=== PATIENT | female | born 1950 | race Caucasian/White ===

== ENCOUNTER 2016-11-22 09:35 | Day surgery (SDC) | payer MEDICAID ==
[~2016-11-22 09:35] MED LIST: HYDROCODONE 5MG/5 MG PO; NORVASC DPS10 MG PO; SYNTHROID DP0.125 MG PO; TENORMIN DPS50 MG PO; ZESTRIL DPS40 MG PO
== END 2016-11-22 13:01 | disposition home or self-care (01) ==
DX: D12.0 Benign neoplasm of cecum (principal); K64.9 Unspecified hemorrhoids; K57.30 Diverticulosis of large intestine without perforation or abscess without bleeding; I10 Essential (primary) hypertension; E03.9 Hypothyroidism, unspecified; K59.00 Constipation, unspecified; Z90.710 Acquired absence of both cervix and uterus; Z90.49 Acquired absence of other specified parts of digestive tract; Z79.899 Other long term (current) drug therapy; Z86.010 Personal history of colon polyps

== ENCOUNTER 2016-11-25 05:22 | Emergency (ER) | payer MEDICAID ==
--- NOTE | 2016-11-29 15:36 | ER ---
ADMIT: 11/25/2016 RM/LOC: ER [facility] MR#: [id number] [address] [address] DARY SALTER [address] [place] [address] Emergency Room Report SEX: F AGE: 66 : 1950 DATE: 11/25/2016 ADDENDUM: This is a 66-year-old white female coming in with kind of a distention discomfort. She states her back hurts little bit. Her neck hurts a little bit, but she just had a colonoscopy on , still feels somewhat distended. Her exam is essentially negative. She does have degenerative arthritis in her neck. So, we did go ahead and put x-ray and that was negative. I did do kind of an upright flat plate, which showed gas and then also CT scan, which showed ileus with some retained air from the procedure. Her CBC, chemistry, lipase were all negative. I spoke with Dr. Crowell. We are going to let her go home. Sips of clear liquids and then follow up next week as needed. CONDITION ON DISCHARGE: Good. Elroy Weber MD/ natanael JOB #: [id number] CC: Vikash Bhandari MD, Attending Physician Temi Crowell MD, Family Physician
== END 2016-11-25 12:30 | disposition home or self-care (01) ==
LOC: ER 05:22
DX: K56.7 Ileus, unspecified (principal); E03.9 Hypothyroidism, unspecified; I10 Essential (primary) hypertension

== ENCOUNTER 2016-11-28 06:05 | Inpatient (IN) | payer MEDICAID ==
[~2016-11-28] VITALS: Ht 162.6 cm; Wt 80.1 kg
--- NOTE | ~2016-11-28 | ECH ---
Transthoracic Echocardiography Report (TTE) Demographics Patient Name DARY SALTER Date of Study 11/28/2016 Patient Number [id number] Visit Number [id number] Date of 1950 Room Number 405 Accession Number [id number] Gender Female Age 66 year(s) Referring Socrates Castillo Precision Lens Grinder Apprentice Rupa Ramríez [facility] Physician Physician Interpreting King Marino Sheldon MD Petroleum Supply Specialist Physician Supervising Ordering Physician Socrates Castillo MD/VERITO SEGAL Nurse Stress Residence Leasing Agent Conclusions Summary Technically fair exam. The estimated left ventricular ejection fraction is 65-70%. Severe concentric left ventricular hypertrophy. Diastolic assessment reveals Grade I diastolic dysfunction. The left atrium is severely dilated by LA volume index measurement. Mild mitral regurgitation by color Doppler. Procedure Type of Study TTE procedure:Echo Complete SF. Procedure Date Date: 11/28/2016 Start: 02:11 PM Technical Quality: Fair due to patient immobility. Indications:Hypotension and Hypertension. Additional Indications:sepsis Appropriate Use Criteria: 9 Height: 64 inches Weight: 169 pounds BSA: 1.82 m Rhythm: Sinus bradycardia HR: 59 bpm BP: 118/70 mmHg M-Mode/2D Measurements LV Diastolic Dimension: 2.8 cm LV Systolic Dimension: 1.7 cm LV Septum Diastolic: 1.9 cm LV PW Diastolic: 1.8 cm AO Root Dimension: 2.96 cm LA Dimension: 4.8 cm LA volume: 109 ml LA volume index: 60 ml/m RV Base: 3.4 cm LVOT: 2.17 cm RV Mid: 2.1 cm RV Length: 6.3 cm Doppler Measurements AV Peak Velocity: 1.45 m/s MV Peak E-Wave: 0.68 m/s AV Peak Gradient: 8.41 mmHg MV Peak A-Wave: 0.83 m/s LVOT Peak Velocity: 1.48 m/s MV E/A Ratio: 0.82 MV P1/2t: 60 msec MV Deceleration Time: 208 msec MV Area (PHT): 3.67 cm PV Peak Velocity: 0.86 m/s RA Area: 15 cm Findings Left Ventricle The left ventricle is normal in size . Severe concentric left ventricular hypertrophy. Diastolic assessment reveals Grade I diastolic dysfunction. Right Ventricle Normal right ventricle structure and function. Left Atrium The left atrium is severely dilated by LA volume index measurement. Right Atrium Normal right atrial size. Mitral Valve Normal mitral valve structure and function. Mild mitral regurgitation by color Doppler. Aortic Valve Normal aortic valve structure and function. Tricuspid Valve Normal tricuspid valve structure and function. Pulmonic Valve The pulmonic valve is not well visualized. Pericardial Effusion No evidence of pericardial effusion. Miscellaneous Visualized portions of the aortic root and ascending aorta appear normal in size. Pleural Effusion No evidence of pleural effusion. Signature
--- NOTE | 2016-11-30 05:52 | HP ---
ADMIT: 11/28/2016 RM/LOC: 405 [facility] MR#: [id number] [facility]#: [id number] 2620 [facility] [address] [place] [id number] DARY SALTER [address] [place] [id number] History and Physical SEX: F AGE: 66 : 1950 DATE OF SERVICE: CHIEF COMPLAINT: Not feeling well. HISTORY OF PRESENT ILLNESS: Ms. Salter is a 66-year-old female. She has a past medical history significant for history of head and neck cancer status post chemo radiation as well as history of tubulovillous adenomatous polyp as well as chronic renal insufficiency, hypertension, medical noncompliance, who had a colonoscopy I believe last week on November 22. She apparently did well after the colonoscopy and went home. She actually presented to the ER over the weekend. At that time, she came in because of a fall. Initially, she presented on 11/25 with just kind of some general abdominal discomfort, but really at that time, she was just given some IV hydration and sent home. Then, last night, she had a fall, came in. It sounds as if she was arguing with her daughter or something and decided she wanted to leave, so called the squad, I do not know. The patient gives a very poor history of this, but it sounds as if when she presented to the ER, they felt that maybe she was having some sepsis-like syndrome. Her temp initially was 103, although she has not had any repeat fever. It looks as if her chest x-ray was normal. Her CT scan of her abdomen was normal. She, otherwise, had a normal white count, and her urine looked normal. She denies any complaints at this time. She reports she has not been eating as well, but otherwise she has been doing okay. PAST MEDICAL HISTORY: Significant for: 1. Status post right hip arthroplasty 10 years ago. 2. Status post hypertension. 3. Gastritis. 4. History of hysterectomy. 5. Status post head and neck cancer, status post dissection and chemoradiation. 6. History of a G-tube placement. 7. History of a tubulovillous adenoma of the rectum which had been removed and recently apparently recurred. 8. Status post appendectomy. 9. History of ulcers. 10.History of cataracts. 11.Hypothyroidism. 12.History of chronic renal insufficiency. ALLERGIES: LISTED NO KNOWN MEDICAL ALLERGIES. MEDICATIONS: 1. Amlodipine 10 mg p.o. daily. 2. Lisinopril 40 mg p.o. daily. 3. Atenolol 50 mg p.o. daily. 4. Levothyroxine 137 mcg p.o. daily. SOCIAL HISTORY: She is on disability. Lives with her daughter. She is not a smoker and does not use any significant alcohol. ADMIT: 11/28/2016 RM/LOC: 405 [facility] MR#: [id number] [address] [address] [place] [address] History and Physical SEX: F AGE: 66 : 1950 FAMILY HISTORY: Relatively noncontributory. REVIEW OF SYSTEMS: Obtained, was otherwise really essentially negative. PHYSICAL EXAMINATION: GENERAL: She is alert and oriented. She seems a little slow. HEENT: Pupils are equal, round, and reactive. Oropharynx, she has no teeth. NECK: Supple. HEART: Normal rate with a regular rhythm. LUNGS: Have diminished breath sounds. ABDOMEN: Soft. Bowel sounds are present, nontender, nondistended. EXTREMITIES: Have no evidence of edema. She has no sores present, although she does kind of have some sores just from where she picks at her skin. LABORATORY DATA: Her laboratory values are reviewed. Of note, her BUN and creatinine are quite elevated. Her baseline creatinine is 1.5 to 2, and it is 3.1 at this time. ASSESSMENT AND PLAN: 1. Profound dehydration. We will go ahead and give her some IV hydration. 2. Hypotension. We will hold her antihypertensives. 3. Fever. She is afebrile at this time, really has no source of infection. We will hold off on giving any antibiotics and just monitor. 4. Chronic kidney disease. 5. Anemia, does appear to be iron deficiency. We will go ahead and give her some Injectafer. 6. Recent diagnosis of the tubulovillous adenoma. At this time, we will discuss the case with Dr. Mackenzie in case he wants to do some kind of surgical intervention and whether or not he wants to do while she is here. 7. Hypertension control. Hold her antihypertensives. 8. Hypothyroidism. Her TSH was checked and does look a little over- replaced. We will lower her dose. I spent 35 minutes in the admission and evaluation of this patient. Temi Crowell MD/ natanael JOB #: [id number] CC: Temi Crowell, Attending Physician Temi Crowell, Family Physician
--- NOTE | 2016-12-02 23:08 | ER ---
ADMIT: 11/28/2016 RM/LOC: 405 [facility] MR#: [id number] 2620 [facility] [address] [place], [place] [address] DARY SALTER [address] [place] [address] Emergency Room Report SEX: F AGE: 66 : 1950 DATE: 11/28/2016 CHIEF COMPLAINT: Fall. HISTORY OF PRESENT ILLNESS: The patient is a 66-year-old female, currently lives with her daughter in [place], disabled due to chronic pain. She was increasingly weak, febrile with diarrhea last night, got up to use the restroom and fell. Paramedics transported, found to be febrile, hypotensive with diffuse abdominal pain, was evaluated here on 11/25/2016, after undergoing uneventful colonoscopy several days prior. CT and plain films had showed ileus, was discharged home. She states since the visit on 11/25/2016, she was just increasingly weak and now with diarrhea and fever. PAST MEDICAL HISTORY: ILLNESSES: Peptic ulcer disease; gastritis; hypertension; hypothyroidism, status post thyroidectomy for thyroid cancer; degenerative joint disease; tubulovillous adenoma of the rectum; chronic kidney disease. OPERATIONS: Appendectomy, hysterectomy, right total hip arthroplasty with multiple dislocations and recent redo in [place], status post G-tube placement, partial thyroidectomy, transverse colon open due to size. ALLERGIES: NONE. MEDICATIONS: Please see nurse's MAR. SOCIAL HISTORY: , retired, lives with daughter. Nonsmoker, nondrinker. No illicit drugs. FAMILY HISTORY: Negative per chart review. REVIEW OF SYSTEMS: A 12-point review of systems negative for all other systems, illnesses, or operations except as outlined above. PHYSICAL EXAMINATION: VITAL SIGNS: Temp 103, pulse 78, respirations 16, BP 93/58, SaO2 of 95% on room air. GENERAL: Pale, lethargic, in moderate distress. HEENT: Mucous membranes are dry. No evidence of epistaxis, rhinorrhea, or otorrhea. NECK: Supple without meningismus. CHEST: Clear. Breath sounds equal. HEART: Regular rate and rhythm without murmur, gallop, or edema. ABDOMEN: Soft, diffusely tender. Bowel sounds hypoactive. BACK: No CVA tenderness. EXTREMITIES: No evidence of Homans sign, synovitis, or dermatitis. ADMIT: 11/28/2016 RM/LOC: 405 [facility] MR#: [id number] [address] [address] [facility] [place] [address] Emergency Room Report SEX: F AGE: 66 : 1950 NEURO: EOMI. PERRLA. No evidence of drift, dysarthria, or ataxia. Gait not assessed. MENTAL STATUS: Alert, disoriented without delusions. MEDICAL DECISION MAKING: The patient's screen is positive for sepsis, hypotensive, was given 30 mL/kg bolus, Tylenol 1 g p.o. Chest x-ray, unremarkable. EKG shows sinus rhythm with left atrial enlargement, LVH unchanged from October 26. Remainder of lab, CT of abdomen and pelvis and head pending. Due to the patient's sepsis syndrome, will be admitted. Case signed over Dr. Calabrese at 0700 hours. Mike Murillo MD/ natanael JOB #: [id number] CC: Temi Crowell MD, Attending Physician Temi Crowell MD, Family Physician Temi Crowell MD
--- NOTE | 2016-12-06 11:46 | CO ---
ADMIT: 11/29/2016 RM/LOC: 405 [facility] MR#: [id number] [address]20 [facility] [address] [place], [place] [address] DARY SALTER [address] [place] [address] Consultation SEX: F AGE: 66 : 1950 DATE OF CONSULTATION: 12/01/2016 ATTENDING PHYSICIAN: Temi Crowell CONSULTING PHYSICIAN: Kaley Villasenor MD REASON FOR CONSULT: Methicillin-sensitive staphylococcus aureus bacteremia. Thank you, Dr. Crowell, for the consult and involving me in this patient's care. HISTORY OF PRESENT ILLNESS: Ms. Salter is a 66-year-old woman with history of head and neck cancer, status post chemoradiation, and history of tubulovillous adenomatous polyp, presented to the ER with complaint of not feeling well. She had a colonoscopy on 11/22 for recurrent large villous polyp in the cecum and was discharged home. She presented again to the ER on 11/25/16 with abdominal discomfort and was found to have some ileus. She again presented on 11/28 after she had a fall and was febrile and extremely weak. She was noted to have a temperature of 103 in the ER. She screened positive for sepsis and was hypotensive and hence admitted for further workup. Her admission blood cultures grew methicillin-sensitive Staphylococcus aureus and repeat blood cultures on the again grew MSSA. She has multiple skin lesions likely from picking on her skin, which are currently red. At present, she feels fine and denies any complaints. She is a very poor historian. She lives at home with her daughter in [place]. PAST MEDICAL HISTORY: 1. Status post right hip arthroplasty 10 years ago and per the patient revision was done in October. 2. Gastritis. History of hysterectomy. 3. Head and neck cancer, status post surgery and chemoradiation. 4. History of G-tube placement. 5. Tubulovillous adenoma. 6. Appendectomy. 7. History of ulcers. 8. Status post cataract surgery. 9. Hypothyroidism. 10.Chronic kidney disease. ALLERGIES: NO KNOWN DRUG ALLERGIES. CURRENT MEDICATIONS: Include: 1. Synthroid. 2. Lovenox. 3. Oxacillin 2 g every 4 hours. 4. Gentamicin. SOCIAL HISTORY: She lives with her daughter at [place]. Denies any smoking, alcohol, or recreational drug use. ADMIT: 11/29/2016 RM/LOC: 405 [facility] MR#: [id number] [address] [address] [place] [address] [place] [address] Consultation SEX: F AGE: 66 : 1950 FAMILY HISTORY: Denies any family history of diabetes, heart problems, or cancer. REVIEW OF SYSTEMS: A 10-point review of systems negative except as mentioned in HPI. PHYSICAL EXAMINATION: VITAL SIGNS: Current temperature is 98.9, T-max was 103 in the ER, heart rate 93, respirations 18, blood pressure 142/91, 99% on room air. GENERAL: No acute distress. HEENT: Head is normocephalic and atraumatic. Extraocular movements intact. Oral mucosa dry. LYMPH: No palpable anterior/posterior cervical or supraclavicular lymphadenopathy. CHEST: Decreased breath sounds at bases. CARDIOVASCULAR: S1 and S2 heard. Regular rate and rhythm. ABDOMEN: Soft, nontender, and nondistended. Active bowel sounds. EXTREMITIES: 1+ peripheral edema. SKIN: There are multiple superficial skin ulcers on her neck on the right side, back, and old healed lesions noted on her lower extremities. PSYCH: Normal affect. Memory mildly impaired. MUSCULOSKELETAL: Mild tenderness to palpation in the right hip. No erythema or swelling noted on the skin. DATA REVIEW: CBC today shows white count of 6.5, hemoglobin 8.5, and platelets 192. BMP shows improved creatinine of 1.3, and low potassium 3.5. CT of the chest without contrast showed interval development of small right pleural effusion and bibasilar interstitial markings. Blood cultures drawn on and is growing methicillin-sensitive staphylococcus aureus. ASSESSMENT AND PLAN: 1. Methicillin-sensitive staphylococcus aureus bacteremia, likely source is skin. I will continue her on oxacillin 2 g every 4 hours. Repeat blood cultures are pending. She had a transthoracic echocardiogram, which did not show any vegetations. I agree with doing a transesophageal echo, ADMIT: 11/29/2016 RM/LOC: 405 [facility] MR#: [id number] [facility] [address] [address] [place] [facility] L [address] [place] [address] Consultation SEX: F AGE: 66 : 1950 which is scheduled for today. Repeat blood cultures are pending. I do not see a need of adding gentamicin at this time and with her kidney function I would hold it now. She does not have any prosthetic heart valves or any pacemaker. 2. Right hip tenderness. I would do a bone scan to rule out any right hip osteomyelitis. We will also check ESR. 3. Status post recent colonoscopy. 4. Acute kidney injury, improving. 5. Hypokalemia. 6. Hypothyroidism. 7. Anemia. Thank you for the consult and I will continue to follow the patient. Kaley Villasenor MD/ natanael JOB #: [id number] CC: Temi Crowell, Attending Physician Temi Crowell, Family Physician
[2016-12-06] MEDS ORDERED: DUONEB DPS3 ML IH (12:03)
[2016-12-06] MEDS ORDERED: LOVENOX DP30 MG/0.3 SQ (12:04)
[2016-12-06] MEDS ORDERED: BACTROBAN OINT.22 GM TP (12:04)
[2016-12-06] MEDS ORDERED: PROSTAPHLIN DPS2 GM IV (12:05)
[2016-12-06] MEDS ORDERED: MAALOX DPS30 ML PO (12:06)
[2016-12-06] MEDS ORDERED: TYLENOL DPS325 MG PO (12:06)
[2016-12-06] MEDS ORDERED: COLACE-DPS100 MG PO (12:06)
[2016-12-06] MEDS ORDERED: POTASSIUM CHLO20 ME1 PO (12:07)
[2016-12-06] MEDS ORDERED: MUCINEX600 MG PO (12:07)
--- NOTE | 2016-12-09 21:34 | ER ---
ADMIT: 11/28/2016 RM/LOC: 405 [facility] MR#: [id number] 2620 [facility] [address] DARY SALTER [address] [place] [address] Emergency Room Report SEX: F AGE: 66 : 1950 DATE: 11/28/2016 ADDENDUM: Following up labs, sepsis workup including a head scan, abdomen scan both of which were negative. Chest x-ray is negative. Labs are significant for BUN of 67, creatinine 3.1, troponin 0.078, C-reactive protein 14, BMP 6565, lactic acid is 0.9. Urine was clean. INR 1.26. Procalcitonin 1.78. The patient is being admitted for hypotension, medically induced. Georges Calabrese MD/ modl JOB #: [id number] CC: Temi Crowell MD, Attending Physician Temi Crowell MD, Family Physician
--- NOTE | 2016-12-17 19:37 | DS ---
ADMIT: 11/29/2016 RM/LOC: 405 [facility] MR#: [id number] [address] [address] DARY SALTER [address] [place] [address] Discharge Summary SEX: F AGE: 66 : 1950 ADMISSION DATE: 11/29/2016 DISCHARGE DATE: 12/05/2016 DISCHARGE DIAGNOSES: 1. Fever. 2. Sepsis due to methicillin-sensitive Staph aureus. 3. Acute kidney injury. 4. Dehydration. 5. Non-pressure skin ulcerations, self-induced. 6. Hypertension. 7. Chronic kidney disease. 8. Hypokalemia. 9. Chronic pain. 10.Hypothyroidism. 11.Osteoarthritis. 12.Iron deficiency anemia. 13.History of head and neck cancer. 14.History of peptic ulcer disease. 15.History of artificial joint replacement. HOSPITAL COURSE: The patient was admitted initially after coming to the ER several times was just complained of weakness and abdominal pain. She did have blood cultures, which were done which did grow out 2/2, actually turned out to be 4/4 gram-positive cocci turned out to be MSSA. She was started on IV antibiotics. There was really no source found. She had a CT of her chest, CT of her abdomen and pelvis, which showed no obvious source. She had picked some areas on her skin. She also attempted CHRISTINE, however, due to her previous esophageal surgery radiation, this was not be able to be accomplished. Therefore, had an Infectious Disease consult. They felt it was safest just to have the patient continue out a full course of IV antibiotics. Otherwise, her anemia was treated. She was seen by PT/OT. She did have a bone scan, which came back negative for any evidence of infection of the joint. The plan was for patient to be discharged to [facility]. DISCHARGE INSTRUCTIONS: ADMIT: 11/29/2016 RM/LOC: 405 [facility] MR#: [id number] 2620 [facility] [address] [place] [address] DARY SALTER [address] [place] [address] Discharge Summary SEX: F AGE: 66 : 1950 1. Norvasc 10 mg p.o. daily. 2. Synthroid 125 mcg p.o. at bedtime. 3. Tenormin 75 mg p.o. daily. 4. Zestril 40 mg p.o. daily. 5. DuoNeb q.i.d. 6. Lovenox daily. 7. Bactroban ointment. 8. Oxacillin 2 g IV every 4 hours I believe x4 weeks until 12/29/2016. She was to have a regular diet. CBC and BMP in one week. CMP weekly. Sedimentation rate in 2 weeks. Chest x-ray in one week. Follow up with Dr. Villasenor. Followup with Dr. Temi Crowell. PT, OT, speech therapy to follow along, and she had a regular diet. Temi Crowell MD/ lenchol JOB #: [id number] CC: Temi Crowell MD, Attending Physician Temi Crowell MD, Family Physician
== END 2016-12-05 13:35 | DRG 872 ==
LOC: ER 06:05 → 4PCU 08:05
PROVIDERS: ADMIT Internal Medicine
DX: A41.1 Sepsis due to other specified staphylococcus (principal); N17.9 Acute kidney failure, unspecified; E86.0 Dehydration; L98.499 Non-pressure chronic ulcer of skin of other sites with unspecified severity; I12.9 Hypertensive chronic kidney disease with stage 1 through stage 4 chronic kidney disease, or unspecified chronic kidney disease; N18.9 Chronic kidney disease, unspecified; L98.429 Non-pressure chronic ulcer of back with unspecified severity; E87.6 Hypokalemia; G89.29 Other chronic pain; E89.0 Postprocedural hypothyroidism; M19.90 Unspecified osteoarthritis, unspecified site; D50.9 Iron deficiency anemia, unspecified; Z85.850 Personal history of malignant neoplasm of thyroid; Z87.11 Personal history of peptic ulcer disease; Z96.641 Presence of right artificial hip joint; Z91.19 Patient's noncompliance with other medical treatment and regimen

== ENCOUNTER 2016-12-05 08:43 | Inpatient (IN) | payer MEDICAID ==
[~2016-12-05] VITALS: Ht 162.6 cm; Wt 83.0 kg
--- NOTE | 2016-12-06 09:55 | NUR ---
PATIENT NOTE DARY HAS BEEN ADMITTED TO [facility] FROM [facility] WHERE SHE IS BEING TREATED FOR SEPSIS. SHE WILL RECEIVE 5 MORE WEEKS OF I.V.A B. THERAPY WITH A STOP DATE OF 12/29. PHYSICAL AND OCCUPATIONAL THERAPY WILL ALSO BE INVOLVED AND WORK ON STRENGTHENING AND ENDURANCE. DARY LIVES IN [place] WITH HER DTR. AND THE GOAL/PLAN IS FOR HER TO RETURN. SHE IS ALERT AND APPROPRIATE WITH ANSWERS IF SHE HEARS YOU, SHE IS HARD OF HEARING. HER MEDICAID TOTAL CARE HAS APPROVED HER STAY WITH A REVIEW ON DAY 7. SOCIAL WORK WILL FOLLOW AND ASSIST WITH D/C PLANNING AND WITH CONCERNS OR NEEDS THAT MAY ARISE.
[2016-12-06] MEDS ORDERED: DUONEB DPS3 ML IH (12:03)
[2016-12-06] MEDS ORDERED: LOVENOX DP30 MG/0.3 SQ (12:04)
[2016-12-06] MEDS ORDERED: BACTROBAN OINT.22 GM TP (12:04)
[2016-12-06] MEDS ORDERED: PROSTAPHLIN DPS2 GM IV (12:05)
[2016-12-06] MEDS ORDERED: TYLENOL DPS325 MG PO (12:06)
[2016-12-06] MEDS ORDERED: MAALOX DPS30 ML PO (12:06)
[2016-12-06] MEDS ORDERED: COLACE-DPS100 MG PO (12:06)
[2016-12-06] MEDS ORDERED: POTASSIUM CHLO20 ME1 PO (12:07)
[2016-12-06] MEDS ORDERED: MUCINEX600 MG PO (12:07)
--- NOTE | 2016-12-06 16:35 | NUR ---
INTERVIEW FOR MDS 3.0-PT IS SITTING IN HER RECLINER, SHE IS ALERT, APPROPRIATE. SHE IS HARD OF HEARING WITH HEARING AIDS IN PLACE. PT. KNOWS THE YEAR, MONTH AND DAY OF THE WEEK. PT. HAS DIFFICULTY REPEATING THE THREE WORDS AND DIFF. RECALLING, NEEDS CUES FOR ALL THREE WORDS. DENIES DEPRESSION BUT STATES SHE IS CHECKING OFF THE DAYS TO BE ABLE TO GO HOME. NOT SURE SHE COMPREHENDS QUESTIONS AT TIMES, WILL ANSWER BUT NOT ON THE SAME SUBJECT. HAS NO TEETH AND STATES HER APPETITE IS GOOD. SLEEPS PRETTY GOOD SHE STATES. DOES NOT CARE ABOUT WHAT SHE WEARS, LIKES TO CHOOSE WHEN AND HOW SHE BATHES. TRIES AND SNACKS BETWEEN MEALS SOMETIMES. STATES SHE IS HAVING PAIN ON HER LT. SIDE, UNABLE TO DESCRIBE, STATES SHE HAS GAS SOMETIMES. GOAL IS TO GO HOME WITH DTR IN [facility]. ASKING TODAY IF OUR VAN CAN GET HER THERE BECAUSE ITS TOO HARD TO STEP UP THE STEPS OF A THE PUBLIC TRANSPORTATION. ELEVATED LEGS ON PILLOW, NOTED MOD AMT EDEMA IN LOWER LEGS BILATERALLY. THANKED THE PT. FOR THE NICE VISIT AND WISHED HER A GOOD REST OF THE DAY.
--- NOTE | 2016-12-12 17:21 | NUR ---
12/12/16 1715 PT IS FRANTIC, AFRAID THAT SOMETHING HAS HAPPENED TO HER RACHEL. SHE HAS THROWN THE PHONE SEVERAL TIMES, HIT THE CALL LITE ON THE TABLE, AND VERY VOCAL THAT "SOMETHING HAS HAPPENED"; SHE IS ON THE CALL LIGHT EVERY FEW MINUTES WITH SAME CONCERN; SHE GIVES ME A NAME TO TRY AND CALL BUT TELLS ME THAT HE IS HARD OF HEARING AND WILL NOT HEAR THE PHONE. I [facility] TO ASK FOR SUGGESTIONS, AND IT GOES TO 911. AFTER EXPLAINING THE SITUATION TO THE DISPATCHER, SHE TELLS ME THAT THEY WILL SEND SOMEONE TO THE PTS ADDRESS, DO A WELFARE CHECK, AND IF THE RACHEL ABHIJIT FAITH IS OK, THEY WILL HAVE HER CALL HER MOTHER. IT THERE IS A PROBLE, THE INSURANCE ACTUARY WILL CALL SKILLED CARE. CLERK MIGUEL
--- NOTE | 2016-12-12 17:41 | NUR ---
12/12/161744 ART PREPARATOR ELOY CALLS TO REPORT THAT THE RACHEL LACEY PENTECOSTAL IS FINE, BUT THAT HER PHONE IS COMPLETELY AND SHE DOESNT KNOW HOW TO CHARGE IT. AT THIS TIME THE COUSIN DION TILLMAN CALLS AND SAYS THAT SHE HAS ABHIJIT WITH HER AND CAN SHE TALK TO DARY, I HAVE PUT HER INTO THE ROOM SO THAT THE PT AND DAUGHTER CAN TALK. I PUT THE CALL INTO THE ROOM THE PT GETS ON THE PHONE AND BEGINS SCREAMING AND CRYING, SAYING THAT SHE IS NEEDING TO GO HOME, ETC. CLERK MIGUEL
--- NOTE | 2016-12-15 05:36 | NUR ---
PT C/O BURING SENSATION WITH 2200 ANTIBIOTIC IV STATES "IT FEELS LIKE A BABY WITH A GAULDED BUTT" SMALL AMOUNT OF BLOOD RETURN OBTAINED. NO REDNESS TO IV SITE, LEFT ARM MEASURES SAME RT; 0530 IV RATE WAS SLOWED AND PT C/O NO BURNING BUT RN NOTED INCREASE EDEMA TO RT UPPER ARM. NO BLOOD RETURN WITH CHECK; RN STOPPED IV FLUIDS AT THIS TIME; PT WAS SEEN AT [facility] 0405 TO CHECK PLACEMENT AND NO CHANGES WERE MADE AT THAT TIME.
--- NOTE | 2016-12-15 20:57 | NUR ---
PICC LINE LEFT UPPER ARM, GAUZE IN PLACE UNABLE TO VISULIZE INSERTION SITE DRESSING CHANGE DUE AFTER 24 HOURS. HAS GOOD BLOOD RETURN.
--- NOTE | 2016-12-29 08:30 | NUR ---
MANUAL BLOOD PRESSURE OF 110/48 WITH MAP OF 68. LOPRESSOR GIVEN PER ORDER. OFFERS NO COMPLAINTS.
== END 2016-12-30 05:10 | disposition short-term general hospital (02) | DRG 872 ==
LOC: SNU 08:43
PROVIDERS: ADMIT Internal Medicine
PROC: F08Z4ZZ Home Management Treatment (ICD-10-PCS; principal; 2016-12-05)
PROC: F07Z9ZZ Gait Training/Functional Ambulation Treatment (ICD-10-PCS; principal; 2016-12-05)
DX: A41.1 Sepsis due to other specified staphylococcus (principal); R04.2 Hemoptysis; I12.9 Hypertensive chronic kidney disease with stage 1 through stage 4 chronic kidney disease, or unspecified chronic kidney disease; L98.429 Non-pressure chronic ulcer of back with unspecified severity; L98.499 Non-pressure chronic ulcer of skin of other sites with unspecified severity; G89.29 Other chronic pain; E89.0 Postprocedural hypothyroidism; M19.90 Unspecified osteoarthritis, unspecified site; D50.9 Iron deficiency anemia, unspecified; N18.9 Chronic kidney disease, unspecified; Z85.850 Personal history of malignant neoplasm of thyroid; Z87.11 Personal history of peptic ulcer disease; Z96.641 Presence of right artificial hip joint; Z91.19 Patient's noncompliance with other medical treatment and regimen

== ENCOUNTER 2016-12-30 02:42 | Observation (INO) | payer MEDICAID ==
[~2016-12-30] VITALS: Ht 152.4 cm; Wt 79.3 kg
[~2016-12-30 02:42] MED LIST changes: +BACTROBAN OINT.22 GM TP; +COLACE-DPS100 MG PO; +DUONEB DPS3 ML IH; +LOVENOX DP30 MG/0.3 SQ; +MAALOX DPS30 ML PO; +MUCINEX600 MG PO; +POTASSIUM CHLO20 ME1 PO; +PROSTAPHLIN DPS2 GM IV; +TYLENOL DPS325 MG PO
--- NOTE | 2017-01-01 00:30 | HP ---
ADMIT: 12/30/2016 RM/LOC: 425 [facility] MR#: [id number] 2620 [facility] [address] [place] [phone] JAZMIN SALTER [address] [place] [id number] History and Physical SEX: F AGE: 66 : 1950 DATE OF SERVICE: 12/30/2016 INTERVAL HISTORY: Since Jazmin was hospitalized on November 28, she was found to have methicillin-sensitive Staph aureus sepsis. She is currently receiving oxacillin intravenously. 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 I was called on the evening of admission that she had an episode of hemoptysis. She is currently at skilled care. She was brought over for evaluation. Was complaining of some abdominal discomfort and nausea. Had an emesis of what they described in the emergency room as coffee-ground. Due to the concern of this and also coughing up blood, they were concerned about sending her back, so they wanted her observed. I admitted her for observation. Apparently, all of these issues are chronic in nature. There is no intent to do an EGD because of her history of head and neck cancer making a scope difficult to do. Hemodynamically, she is stable and her hemoglobin is also stable, although it is low. For this reason, she is observed to make sure there is nothing else that will develop and likely returning to skilled. PAST MEDICAL HISTORY: See previous dictation. Recent methicillin-sensitive Staph aureus sepsis for which she is receiving oxacillin IV every 4 hours. ALLERGIES: UNCHANGED. SOCIAL HISTORY: Unchanged. FAMILY HISTORY: Unchanged. REVIEW OF SYSTEMS: She is having a little bit of discomfort in her abdomen. Some decreased hearing also. MEDICATIONS: On admission: 1. Potassium 20 mEq daily. 2. Norvasc 10 mg daily. 3. Synthroid 0.125 daily. 4. Tenormin 25 daily. 5. Zestril 40 daily. 6. Lovenox 30 daily. 7. Bactroban ointment to the sore daily. 8. Oxacillin 2 g IV every 4. 9. Colace 100 mg b.i.d. p.r.n. 10.Maalox p.r.n. 11.Milk of mag daily p.r.n. 12.MiraLAX daily p.r.n. 13.Tums p.r.n. 14.Tylenol 650 p.o. or suppository p.r.n. 15.DuoNeb q.4 p.r.n. 16.Dulcolax suppository p.r.n. 17.Nystatin powder t.i.d. p.r.n. 18.Zofran q.4 p.r.n. IV. ADMIT: 12/30/2016 RM/LOC: 425 [facility] MR#: [id number] [address] [address] [place] [address] History and Physical SEX: F AGE: 66 : 1950 PHYSICAL EXAMINATION: VITAL SIGNS: Per nursing. GENERAL: This is a pale well-developed, well-nourished female currently sitting in a chair right before lunch. NECK: With obvious previous surgery for her head and neck cancer. LUNGS: Diminished but clear. CARDIOVASCULAR: Regular with a 1/6 murmur. ABDOMEN: Soft. GENITOURINARY AND RECTAL: Deferred. EXTREMITIES: Without edema. IMPRESSION: 1. Hemoptysis. 2. Emesis with ? blood. 3. Hypertension. 4. Chronic kidney disease. 5. Anemia. 6. History of head and neck cancer. 7. History of peptic ulcer disease. 8. History of sepsis secondary to methicillin-sensitive Staph aureus. 9. History of tubulovillous adenoma with planned surgery of 01/02/2017. 10.Hypothyroid. DISCUSSION: This is stable. Surgeons are not planning on doing an EGD. That was the main reason I kept her. There really is no reason for her to stay in the hospital waiting for her surgery. We will dismiss back to skilled care, which she was not pleased about. PLAN: 1. Dismissed back to skilled care. 2. Continue current medications except stop Lovenox and start Pepcid 20 b.i.d. Nathaly Jensen MD/ natanael JOB #: [id number] CC: Temi Crowell MD, Attending Physician Temi Crowell MD, Family Physician . [facility]
--- NOTE | 2017-01-02 00:35 | ER ---
ADMIT: 12/30/2016 RM/LOC: 425 [facility] MR#: [id number] 2620 [facility] [address] [place] [phone] DARY SALTER [address] [place] [address] Emergency Room Report SEX: F AGE: 66 : 1950 DATE: 12/30/2016 HISTORY OF PRESENT ILLNESS: The patient is a 66-year-old female with a past medical history of pharyngeal cancer, status post radiation and chemotherapy; villous adenomas of the colon, waiting for colon resection on Sunday; hypertension; chronic kidney disease; gastritis; MSSA bacteremia, who is still getting oxacillin for it, came to the ER with chief complaint of coughing up blood, from custodial facility. Additionally, today patient coughed blood a few times. PHYSICAL EXAMINATION: GENERAL: In the ER, the patient was in no obvious distress, lying in the bed. VITAL SIGNS: Blood pressure was 158/85 with a heart rate of 86 and respiratory rate of 18, O2 saturation was 97% on 2-4 L nasal cannula. The patient usually is on room air and per previous chart was in the low-to-mid 90s on room air. HEAD AND NECK: Conjunctiva is not pale. In the mouth, there are two 3-5 mm clots at the size of the tongue. I was looking for any obvious source of bleeding in the oropharynx, but I was not able to see any source. I did not see any active bleeding or any blood in the back of the throat. The patient in the ER coughed twice and there were just sputum mixed with the blood, which was bright. Trachea is midline. No bruit on the neck. CHEST: Clear bilaterally. No murmurs or gallops. ABDOMEN: Distended, but is soft and nontender. No rebound and no CVA tenderness. Bowel sounds are normal. EXTREMITIES: Upper and lower extremity motor and sensory are grossly normal, and the rest of the physical examination is noncontributory and negative. LABORATORY AND X-RAY DATA: Chest x-ray did not show any acute changes comparing with the previous chest x-ray. EKG was negative for any ischemic changes. Hemoglobin was 8.1 with white cell 5.5 and MCV of 96.2, and platelet of 242. The patient's hemoglobin level has been in that range for sometime ADMIT: 12/30/2016 RM/LOC: 425 [facility] MR#: [id number] [address] [address] [facility] [address] Emergency Room Report SEX: F AGE: 66 : 1950 and creatinine was 1.2. Alkaline phosphatase was elevated to 333. While the patient was in the ER because of the chronic right upper quadrant abdominal pain that she had all the time per patient for the last month, she received 2 mg of morphine for which, she became a little nauseous and she spitted up some phlegm, which was more like coffee-ground. The patient received Protonix IV in the ER and Zofran in the ER. ASSESSMENT AND PLAN: Considering the possibility of pharyngeal cancer/scar bleeding versus gastritis versus hemoptysis, the patient was admitted for further followups and treatments, ENT versus bronchoscopy per their discretion. Vikash Bhandari MD/ natanael JOB #: [id number] CC: Temi Crowell MD, Attending Physician Temi Crowell MD, Family Physician
--- NOTE | 2017-01-10 16:25 | CO ---
ADMIT: 12/30/2016 RM/LOC: 425 [facility] MR#: [id number] [address] [address] DARY SALTER [address] [place] [address] Consultation SEX: F AGE: 66 : 1950 DATE OF CONSULTATION: 12/30/2016 ATTENDING PHYSICIAN: Temi Crowell MD CONSULTING PHYSICIAN: Rocky Olmstead MD REASON FOR CONSULTATION: The patient coughed up a little blood. HISTORY OF PRESENT ILLNESS: This patient is a 66-year-old female, looks like is a long-term patient of Dr. Crowell's and Dr. Mackenzie, who is quite familiar with her. She evidently has had a history of polyps and a large cecal polyp that Dr. Mackenzie has worked on in the past currently not amendable to be removed by colonoscope and they are going to plan on Sunday doing a laparoscopic right hemicolectomy. She has been staying over at [facility] and evidently spit up coughed a little bit and ended up having a little bit of blood in her tissue but I would not describe this as hemoptysis and/or hematemesis and she has a long-term history of a head and neck cancer with previous resection and radiation therapy. So, nothing that is what she describes me out of the abnormal for her. PAST MEDICAL HISTORY: Significant for the above history of G-tube like I said, rectal polyp and a cecal polyp. She has had an appendectomy evidently history of ulcers, cataracts, hypothyroidism, chronic renal insufficiency, hip surgery on the right side, I believe, hypertension, gastritis, and hysterectomy. CURRENT MEDICATIONS: Please see list on the chart. I do not know that I do not believe she has any long-term allergies. She has been on Lovenox. She currently has been staying over at [facility]. She had been living with her daughter evidently. Denies tobacco and/or alcohol at this point. FAMILY HISTORY: Noncontributory. REVIEW OF SYSTEMS: As above. PHYSICAL EXAMINATION: GENERAL: She is currently alert, oriented talking me, afebrile. VITAL SIGNS: Stable. She has had no significant hemoptysis and or hematemesis. what she has kind of spit up or coughed up, it is not alarming ADMIT: 12/30/2016 RM/LOC: 425 [facility] MR#: [id number] [address] [address] [facility] [place] [address] Consultation SEX: F AGE: 66 : 1950 to me or anything that I feel needs investigating at this point. I see nothing just an examination of her oropharynx. HEENT: Her sclerae are nonicteric. HEART: Appears regular rate and rhythm. LUNGS: Distant bilaterally, but no significant wheezes or rhonchi. ABDOMEN: Soft. No pain to palpation. No obvious mass or organomegaly. ASSESSMENT AND PLAN: At this time, I do not see anything that we have to investigate as far as procedural dillard from a surgical standpoint. I do not detect or worry about any current hemoptysis and/or hematemesis. I do not think anything needs to delay her surgery and from my standpoint, I am fine with her going back to skilled whenever Internal Medicine think she is okay. Rocky Olmstead MD/ natanael JOB #: [id number] CC: Temi Crowell MD, Attending Physician Temi Crowell MD, Family Physician
== END 2016-12-30 15:06 ==
LOC: ER 02:42 → 4PCU 04:45
PROVIDERS: ADMIT Internal Medicine
DX: R04.2 Hemoptysis (principal); K92.0 Hematemesis; I12.9 Hypertensive chronic kidney disease with stage 1 through stage 4 chronic kidney disease, or unspecified chronic kidney disease; N18.9 Chronic kidney disease, unspecified; E03.9 Hypothyroidism, unspecified; Z87.11 Personal history of peptic ulcer disease; Z85.89 Personal history of malignant neoplasm of other organs and systems; Z90.49 Acquired absence of other specified parts of digestive tract; Z98.890 Other specified postprocedural states

== ENCOUNTER 2016-12-30 15:04 | Inpatient (IN) | payer MEDICAID ==
[~2016-12-30] VITALS: Ht 152.4 cm; Wt 81.0 kg
--- NOTE | 2017-01-01 22:49 | NUR ---
Patient has a low hgb-hct. This nurse has communicated with blood bank regarding the availablity of a unit blood to be transfused. Blood bank is working on the availablity but the unit of blood is not available at this time. Patient is to have surgery in the morning. This nurse did contact the nursing instrument shop supervisor for direction. Patient is not the first case in the morning. Not sure when blood will be transfused. Will continue to communicate with blood bank. If unable to receive and transfuse this shift will contact the doctor in the am
--- NOTE | 2017-01-03 00:19 | NUR ---
administered blood product. No signs or symptoms of adverse reaction noted. VS stable and no complaints of pain. pt also continues on iv antibiotics.
== END 2017-01-04 06:00 | disposition short-term general hospital (02) | DRG 872 ==
LOC: SNU 15:04
PROVIDERS: ADMIT Internal Medicine
DX: A41.1 Sepsis due to other specified staphylococcus (principal); L98.429 Non-pressure chronic ulcer of back with unspecified severity; I12.9 Hypertensive chronic kidney disease with stage 1 through stage 4 chronic kidney disease, or unspecified chronic kidney disease; D12.6 Benign neoplasm of colon, unspecified; L98.499 Non-pressure chronic ulcer of skin of other sites with unspecified severity; N18.9 Chronic kidney disease, unspecified; G89.29 Other chronic pain; E89.0 Postprocedural hypothyroidism; M19.90 Unspecified osteoarthritis, unspecified site; D50.9 Iron deficiency anemia, unspecified; Z85.850 Personal history of malignant neoplasm of thyroid; Z87.11 Personal history of peptic ulcer disease; Z96.641 Presence of right artificial hip joint; Z91.19 Patient's noncompliance with other medical treatment and regimen

== ENCOUNTER 2017-01-02 08:41 | Inpatient (IN) | payer MEDICAID ==
[~2017-01-02] VITALS: Ht 162.6 cm; Wt 86.6 kg
--- NOTE | 2017-01-05 15:49 | CO ---
ADMIT: 01/04/2017 RM/LOC: 502 [facility] MR#: [id number] 2620 [facility] [address] [place] [phone] DARY SALTER [address] [place] [address] Consultation SEX: F AGE: 66 : 1950 Corrected: 01/05/2017 0839 djs DATE OF CONSULTATION: 01/04/2017 ATTENDING PHYSICIAN: Jesús Mackenzie CONSULTING PHYSICIAN: Michael Drummond MD REASON FOR CONSULT: Evaluation of medical issues postoperatively after hemicolectomy. HISTORY OF PRESENT ILLNESS: The patient is a 66-year-old female, known to me from prior admission who reports for a hemicolectomy due to a large polyp she has had in the past, had a recent anemia, given blood this last week. Otherwise, she cannot really provide much history right now postoperatively. Quite a bit of confusion. Reportedly was little bit the same preoperatively. Unclear. She otherwise denies much pain at this time. No recent fevers or chills. She has been recuperating over at skilled due to an MSSA bacteremia she had earlier this spring in November. She had a small bout of hemoptysis for which she was hospitalized 5 days ago overnight and has not had reported recurrence of this. PAST MEDICAL HISTORY: 1. History of right hip replacement. 2. Hypertension. 3. Gastritis. 4. History of hysterectomy. 5. History of head and neck cancer status post dissection and chemoradiation. 6. G-tube placement secondary to this. 7. History of appendectomy, hypothyroidism, hypertension, chronic kidney disease stage 3. MEDICATIONS: Please see med list which I have reviewed. Notably on: 1. Amlodipine. 2. Lisinopril. 3. Atenolol. 4. Levothyroxine. Please see list for full details. SOCIAL HISTORY: She is on disability living with her daughter. Not currently a smoker. Unclear whether or not she used in the past. FAMILY HISTORY: Reviewed and noncontributory. She is not able to provide any further update on it. REVIEW OF SYSTEMS: As per HPI but really unobtainable due to her level of confusion. Cannot answer questions for the most part. PHYSICAL EXAMINATION: VITAL SIGNS: Temperature 96.3, pulse 66, respiratory ADMIT: 01/04/2017 RM/LOC: 502 [facility] MR#: [id number] [address] [address] [facility] [place] [address] Consultation SEX: F AGE: 66 : 1950 rate 12, blood pressure 122/70, O2 saturation 95% on room air. GENERAL: She is alert, oriented to person only. Just kind of smiles. HEENT: Normocephalic, atraumatic. Pupils are equal bilaterally. Dry mucous membranes. LUNGS: She has occasional wheeze throughout. NECK: She has scarring. HEART: Regular rate and rhythm. No murmurs, rubs, or gallops. ABDOMEN: Soft, nontender, and nondistended. She has her dressing there. Not active bowel sounds. EXTREMITIES: No cyanosis, clubbing, or edema. MUSCULOSKELETAL: 5/5 strength in all 4 extremities. Easy fatigability. She moves all extremities equally. SKIN: No rashes noted. LABORATORY AND X-RAY DATA: Her hemoglobin yesterday was 8.1, creatinine 1.1 on the 22. INR is okay. White count 3.5. Potassium 3.6 on 22. ASSESSMENT: 1. Status post right hemicolectomy. 2. Anemia. 3. Hypothyroidism. 4. Hypertension. 5. 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 6. Wheezing. 7. Confusion. PLAN: At this point in time, we will just monitor her confusion. She seems off from her baseline. No focal neurologic deficits. I suspect it is all from her anesthesia and we will see how she does over the next 24 to 48 hours. In regard to her wheezing, we will start some bronchodilators as well as some EzPAP. Try to get her mobilized and moving soon as possible. We will follow along for hypertension otherwise as well. Please call if any questions. Michael Drummond MD/ natanael JOB #: [id number] CC: Jesús Mackenzie, Attending Physician Temi Crowell, Family Physician Corrected: 01/05/2017 0839 reno
--- NOTE | 2017-02-06 06:58 | OR ---
ADMIT: 01/04/2017 RM/LOC: 502 [facility] MR#: [id number] [address]20 [facility] [address] [place] [phone] DARY SALTER [address] [place] [address] Operative/Delivery Room Report SEX: F AGE: 66 : 1950 Corrected: 01/05/201703 djs SURGERY DATE: 01/04/2017 SURGEON: Jesús Mackenzie MD PREOPERATIVE DIAGNOSIS: Right colon mass, not amenable to colonoscopic resection. POSTOPERATIVE DIAGNOSIS: Right colon mass, not amenable to colonoscopic resection. PROCEDURE PERFORMED: Laparoscopic right hemicolectomy. LOOM MECHANIC: ALLYN Menchaca. ANESTHESIA: General endotracheal. ESTIMATED BLOOD LOSS: Less than 30 mL. DESCRIPTION OF PROCEDURE: After appropriate informed consent was obtained, the patient was brought to the operating room. General endotracheal anesthesia was induced. The patient's abdomen was prepped and draped in a sterile fashion. A small infraumbilical incision was created. Veress needle introduced. The abdomen was insufflated with CO2. A 5 mm trocar was placed. Camera was introduced, the abdomen surveyed. She had just very few intraabdominal adhesions. No obvious masses or tumors. Three additional ports were placed. The cecum was very mobile and floppy. I could see the staple lines from the previous cecectomy that she has had or partial cecectomy that she has had. I was able to lift the cecum and right colon up and identify the ileocolic vessel. The ileocolic vessel was isolated taking care to avoid any injury to the duodenum posterior to this. The vessel was encircled and then divided with EndoGIA stapler with 2.5 mm keyon. I then carried the dissection up along the duodenum sweeping the duodenum posteriorly and the mesentery anteriorly. I was able to break through the hepatic flexure attachments. I then turned my attention to go up over the top of the colon and in doing so, I was able to free up the remainder of the hepatic flexure attachments and mobilize the colon medially. I then continued dissection along the white line of Toldt out laterally. As the colon was medialized to freed up any additional congenital adhesions that were there to allow complete mobilization of the colon. I did also identify the right branch of the middle colic, and I divided this with the Harmonic Scalpel. So with that vessel finally divided, I had the colon completely mobilized and ready to bring up through the abdominal wall. So incision was made in the upper midline and wound protector was placed. The bowel was brought up through the abdominal wall, and I made preparations to perform a [id number] stapled anastomosis. I had to free up a little bit more of the small bowel mesentery, so I clamped and divided a couple vessels going to the small bowel so that I had enough length to bring up the bowel to do the anastomosis. On the colon side, there ADMIT: 01/04/2017 RM/LOC: 502 [facility] MR#: [id number] [address] [place] [phone] DARY SALTER [address] [place] [address] Operative/Delivery Room Report SEX: F AGE: 66 : 1950 was a small bleeding vessel on the mesentery, this was controlled with figure- of-eight 0 Vicryl suture. With this accomplished, the bowel was brought together. A couple of incisions were made in the antimesenteric surface of both the colon and the small bowel. A IRAM-75 stapler was introduced and a side- to-side stapled anastomosis was performed. It took 2 additional loads of the IRAM-75 stapler to subsequently transect across the bowel, closing the enterotomy and freeing up the specimen. Specimen was handed off and sent to pathology. A couple of silk sutures were placed in the crotchy anastomosis to take any tension off the anastomosis. Several additional 3-0 silk sutures were used to imbricate over the corners of the staple line as well as the crisscrossing staple lines in the middle. Both sides of the bowel appeared viable and the anastomosis was wide open. The bowel was then reintroduced in the abdominal cavity. Gloves were changed. Wound protector was removed and the fascia closed with two #1 PDS sutures starting at either end and tied in the middle. The abdomen was then reinsufflated, and the anastomosis was inspected. This appeared to be lying nicely in the right upper quadrant. No tension. There was some bleeding from the midline wound, so I controlled this with a couple of [id number] 0 Vicryl sutures using the suture passer to ligate around that. So, with this accomplished, the left lower quadrant fascial defect was then closed with a [id number] 0 Vicryl suture. All the wounds were infiltrated with Marcaine, and the abdomen was desufflated. The skin was then closed with skin keyon. Sterile dressings were applied. Elroy Ribeiro assisted in this entire procedure. His help was necessary for retraction and camera driving during this dissection. Jesús Mackenzie MD/ natanael JOB #: [id number] CC: Jesús Mackenzie, Attending Physician Temi Crowell, Family Physician Temi Crowell MD Corrected: 01/05/2017 0803 djdavid
--- NOTE | 2017-02-06 07:03 | DS ---
ADMIT: 01/04/2017 RM/LOC: 502 [facility] MR#: [id number] ACC#: [id number] [facility] [address] [place] [id number] [address] [place] [address] Discharge Summary SEX: F AGE: 66 : 1950 ADMISSION DATE: 01/04/2017 DISCHARGE DATE: 01/11/2017 ADMITTING DIAGNOSIS: Right colon mass. DISMISSAL DIAGNOSES: 1. Villous adenoma of the right colon. 2. Anemia. 3. Weakness. PROCEDURES: Laparoscopic right hemicolectomy. HOSPITAL COURSE: The patient was an inpatient admit with routine med/surg orders. Immediately after surgery, it was noted that there was some extensive bleeding from the incision site, and so I placed two, 3-0 figure eight sutures, and hemostasis was achieved. Afterwards, the patient transferred to the floor without any complications. She was given a morphine CONDENSER OPERATOR for pain control and was started on sips of clears. Dr. Drummond was consulted to help in the medical management of this case. Overall, the patient recovered well while in the hospital. Her Esqueda that was placed intraoperatively was pulled on postop day #1. She was tolerating her morphine CONDENSER OPERATOR so was weaned off and tolerated oral pain medications. We did have a little bit of issue keeping her oxygen saturations up despite with EZ-PAP, Lasix, DuoNebs. This was an ongoing struggle, but eventually her oxygen saturations improved. She was started on IV antibiotics due to possible pneumonia in her right lung. Given the length of her stay, malnutrition was a concern so she had a PICC line placed and was put on TPN. Lungs began to aerate well and oxygen saturations increased. She was taken off her IV antibiotics and was switched to oral antibiotics. Her bowels began to improve and she was tolerating an advanced diet. Lab work normalized, and the patient was feeling well. Her PICC was removed on 01/11/2017. The patient continued to recover well and was able to discharge to long-term facility on 01/11/2017. DISCHARGE INSTRUCTIONS: 1. Follow up with Dr. Mackenzie in 7-10 days. 2. Follow up with Dr. Crowell in 5-7 days. 3. Chest x-ray, PA and lateral, the day before appointment with Dr. Crowell. DISCHARGE MEDICATION LIST: 1. Levaquin 500 mg p.o. daily. 2. Mucinex 1200 mg b.i.d. ADMIT: 01/04/2017 RM/LOC: 502 [facility] MR#: [id number] [address] [id number] [facility] [address] [address] Discharge Summary SEX: F AGE: 66 : 1950 3. Norvasc 5 mg daily. 4. Pepcid 20 mg b.i.d. 5. Remeron 15 mg as directed. 6. Synthroid 0.137 mg p.o. a.m. 7. Tenormin 50 mg daily. 8. Zestril 40 mg daily. 9. DuoNebs every 4. 10.Lovenox 40 mg daily. 11.Colace 100 mg b.i.d. p.r.n. 12.Maalox 30 mL p.o. q.6h p.r.n. 13.Tylenol 650 mg p.o. q.4h p.r.n. 14.Acapella. ALLYN Menchaca / Jesús Mackenzie MD / desiree JOB #: [id number] CC: Jesús Mackenzie MD, Attending Physician Temi Crowell MD, Family Physician
== END 2017-01-11 14:25 | DRG 329 ==
LOC: 5MS 01-04 06:22 → WOR 01-04 06:22 → 5MS 01-04 10:15
PROVIDERS: ADMIT Surgery
PROC: 0DTF4ZZ Resection of Right Large Intestine, Percutaneous Endoscopic Approach (ICD-10-PCS; principal; 2017-01-04)
PROC: 02HV33Z Insertion of Infusion Device into Superior Vena Cava, Percutaneous Approach (ICD-10-PCS; 2017-01-07)
DX: D12.0 Benign neoplasm of cecum (principal); J96.01 Acute respiratory failure with hypoxia; J18.9 Pneumonia, unspecified organism; E46 Unspecified protein-calorie malnutrition; N18.3 Chronic kidney disease, stage 3 (moderate); E03.9 Hypothyroidism, unspecified; I12.9 Hypertensive chronic kidney disease with stage 1 through stage 4 chronic kidney disease, or unspecified chronic kidney disease; D63.1 Anemia in chronic kidney disease; R41.0 Disorientation, unspecified; Z96.641 Presence of right artificial hip joint; Z85.89 Personal history of malignant neoplasm of other organs and systems; Z93.1 Gastrostomy status; Y95 Nosocomial condition

== ENCOUNTER 2017-01-10 06:44 | Inpatient (IN) | payer MEDICAID ==
[~2017-01-10] VITALS: Ht 162.6 cm; Wt 80.0 kg
--- NOTE | 2017-01-12 14:20 | NUR ---
PATIENT NOTE DARY HAS BEEN READMITTED TO [facility] FROM [facility] WHERE SHE UNDERWENT LAP PILLO COLECTOMY SURGERY. HER GOAL/PLAN IS TO RETURN TO HER HOME IN [place] WHERE HER DTR. DOES LIVE WITH HER. DARY DOES NEED TO GET STRONGER AND WILL NEED TO BE ABLE TO CARE FOR HERSELF WHEN HOME. DARY IS HERE UNDER HER MEDICAID TOTAL CARE INSURANCE WHO HAS APPROVED 7 DAYS WITH A REVIEW. SHE IS ALERT WITH FORGETFULNESS SHE IS ALSO HARD OF HEARING SO SHE MAY NOT ANSWERS QUESTIONS APPROPRAITELY IF SHE DOES NOT HEAR YOU. SOCIAL WORK WILL FOLLOW AND ASSIST WITH D/C PLANNING AND WITH CONCERNS OR NEEDS THAT MAY ARISE.
--- NOTE | 2017-01-16 11:26 | NUR ---
PATIENT NOTE DARY CAME BACK FROM DR. WU APPOINTMENT WITH D/C TO HOME ORDERS. I DID VISIT WITH DARY ABOUT THE ORDERS AND EXPLAINED TO HER THAT WE WILL NEED TO DO OXYGEN TESTING TO PROVE SHE NEEDS IT. WE ALSO TALKED ABOUT DR. SNEED APPOINTMENT TODAY AT 2PM AND THEN DR. OLIVIER ON 01/18 AT 2PM AND THEN A SWALLOW STUDY 01/19 AT 11AM. WE CAME UP WITH A D/C 01/19 AT 2PM. SHE WILL NEED TO GO HOME BY PUBLIC TRANSPORTATION SHE HAS USED THEM IN THE PAST. I NOTIFIED HER COUSIN, DION OF THE PLAN AND AGREED WITH IT. I WILL MAKE A REFERRAL TO [facility] ON [address] AND [facility]. DARY HAS HER OWN WALKER IN HER ROOM. NURSING IS GOING TO WORK ON THE OXYGEN TESTING. SOCIAL WORK TO FOLLOW.
--- NOTE | 2017-01-16 16:57 | NUR ---
pt is refusing to wear her oxygen. She "doesn't know how to run it and it's not for me." I advised her it's not in her best interest but I won't make her do anything she doesn't want to do. Will let Dr Crowell know.
--- NOTE | 2017-01-19 14:32 | NUR ---
PATIENT NOTE DARY HAS BEEN D/C TO HER HOME THIS AFTERNOON. I ARRANGED PUBLIC TRANSPORTATION TO TRANSPORT HER HOME AT 2PM. I CALLED AND VISITED WITH HER DTR. ERIC TO LET HE KNOW THAT HHC WILL BE CALLING TOMORROW 01/20 TO SIT UP A TIME TO COME OUT AND ADMIT DARY TO SERVICES. ERIC STATED THAT SHE UNDERSTOOD. HHC OPTIONS GIVEN TO DARY AND SHE CHOSE [facility], REFERRAL MADE TO [facility] WHO DID COME AND INITIATE SERVICES. DARY IS REFUSING OXYGEN AND NEBULIZER TREATMENTS AT HOME, DR. SALINAS AWARE AND NURSING HAS GONE OVER THE RISK SHE IS TAKING WITH HER. DARY REMAINS MIKHAIL OF HEARING WITH HEARING [facility] THAT DO NOT WORK. SHE IS ALERT AND APPROPRIATE WHEN SHE HEARS WHAT YOU ARE SAYING. APPOINTMENT FOR HER HEARING HAS BEEN MADE. I WISHED HER WELL.
--- NOTE | 2017-01-19 14:36 | NUR ---
1415 pt put on bus by social media strategist with belongings and bus fee, RN went over discharge with family yesterday, since pt is forgetful and hard of hearing, daughter informed of when pt left so shed be ready, pt refused to have breathing treatments to take home, home health to follow up 01/20/17
[2017-01-19] MEDS ORDERED: MUCINEX600 MG PO (17:53)
[2017-01-19] MEDS ORDERED: REMERON DPS15 MG PO (17:54)
[2017-01-19] MEDS ORDERED: NORVASC5 MG PO (17:54)
[2017-01-19] MEDS ORDERED: PEPCID DPS20 MG PO (17:54)
[2017-01-19] MEDS ORDERED: TENORMIN DPS50 MG PO (17:55)
[2017-01-19] MEDS ORDERED: SYNTHROID DP0.137 MG PO (17:55)
[2017-01-19] MEDS ORDERED: COLACE-DPS100 MG PO (17:55)
[2017-01-19] MEDS ORDERED: DUONEB DPS3 ML IH (17:56)
== END 2017-01-19 14:15 | disposition home health service (06) | DRG 949 ==
LOC: SNU 06:44
PROVIDERS: ADMIT Internal Medicine
PROC: F00ZHZZ Bedside Swallowing and Oral Function Assessment (ICD-10-PCS; principal; 2017-01-11)
PROC: F08Z4ZZ Home Management Treatment (ICD-10-PCS; principal; 2017-01-11)
PROC: F07Z9ZZ Gait Training/Functional Ambulation Treatment (ICD-10-PCS; principal; 2017-01-11)
DX: Z48.815 Encounter for surgical aftercare following surgery on the digestive system (principal); J18.9 Pneumonia, unspecified organism; N18.3 Chronic kidney disease, stage 3 (moderate); Z93.1 Gastrostomy status; E03.9 Hypothyroidism, unspecified; I12.9 Hypertensive chronic kidney disease with stage 1 through stage 4 chronic kidney disease, or unspecified chronic kidney disease; D63.1 Anemia in chronic kidney disease; Z96.641 Presence of right artificial hip joint; Z85.89 Personal history of malignant neoplasm of other organs and systems; Z86.010 Personal history of colon polyps

== ENCOUNTER 2017-01-20 08:52 | Emergency (ER) | payer MEDICAID ==
[~2017-01-20 08:52] MED LIST changes: +NORVASC5 MG PO; +PEPCID DPS20 MG PO; +REMERON DPS15 MG PO; +SYNTHROID DP0.137 MG PO
--- NOTE | 2017-02-10 15:15 | ER ---
ADMIT: 01/20/2017 RM/LOC: ER [facility] MR#: [id number] [address] [address] [address] [place] [address] Emergency Room Report SEX: F AGE: 66 : 1950 DATE: 01/20/2017 ADDENDUM: This patient comes to the ER for not being able here out of right ear. It has been going on for the last 2 months. She comes in requesting her ears to be cleaned. On physical exam, both of her TMs are clear. There is no cerumen impaction or any foreign bodies noted in the ear canal. I encouraged the patient and her mother that they needed to maybe get her hearing aids evaluated. Because that is a concern that she is not able to hear with her hearing aids and in the past, she just needed her ears cleaned. We will have them followup. Please see my T-sheet. ALLYN Fernando / Virgilio Nair MD / natanael JOB #: [id number] CC: Virgilio Nair MD, Attending Physician Temi Crowell MD, Family Physician
== END 2017-01-20 09:25 | disposition home or self-care (01) ==
LOC: ER 08:52
DX: H91.93 Unspecified hearing loss, bilateral (principal); I10 Essential (primary) hypertension; E03.9 Hypothyroidism, unspecified; Z85.038 Personal history of other malignant neoplasm of large intestine